=== PATIENT | female | born 1980 | race Two or more races ===

== ENCOUNTER 2021-06-15 16:12 | Emergency (ER) | payer MEDICAID ==
[~2021-06-15] VITALS: Ht 162.6 cm; Wt 79.1 kg
[2021-06-15 18:18] VITALS: BP 143/63
== END 2021-06-15 18:25 | disposition home or self-care (01) ==
LOC: EDSEX 16:17 → EMS 16:17
DX: S93.402A Sprain of unspecified ligament of left ankle, initial encounter (principal); M77.32 Calcaneal spur, left foot; W01.0XXA Fall on same level from slipping, tripping and stumbling without subsequent striking against object, initial encounter; Y93.01 Activity, walking, marching and hiking; Y92.89 Other specified places as the place of occurrence of the external cause; Y99.8 Other external cause status
CPT/HCPCS: 99284

== ENCOUNTER 2022-01-10 13:20 | Emergency (ER) | payer MEDICAID ==
[~2022-01-10] VITALS: Ht 160 cm; Wt 83.2 kg
[2022-01-10 13:36] VITALS: BP 136/75
== END 2022-01-10 16:25 | disposition home or self-care (01) ==
LOC: EMS 13:20
DX: R22.1 Localized swelling, mass and lump, neck (principal)
CPT/HCPCS: 70490; 99284; Z7502